=== PATIENT | male | born 1975 | race Caucasian/White ===

== ENCOUNTER 2019-05-30 00:58 | Emergency (ER) | payer MEDICAID, OTHER ==
[2019-05-30] MEDS: KETOROLAC 30 MG INJ IM (02:32)
[2019-05-30] MEDS: DIPHTH/TET/ACEL PERTUSS (ADULT) 0.5 ML VIAL IM* (02:32)
[2019-05-30] MEDS: LIDOCAINE 1% (MDV) 20 ML INJ SC (02:33)
[2019-05-30] MEDS: BACITRACIN 0.9 GM OINT TOP (02:33)
== END 2019-05-30 03:58 | disposition home or self-care (01) ==
LOC: FTE 03:58
DX: S61.012A Laceration without foreign body of left thumb without damage to nail, initial encounter (principal); W26.8XXA Contact with other sharp object(s), not elsewhere classified, initial encounter; Y92.9 Unspecified place or not applicable; Z23 Encounter for immunization
CPT/HCPCS: 12002; 90471; 90715; 96372; 99284-25

== ENCOUNTER 2019-06-09 14:37 | Emergency (ER) | payer MEDICAID | END 2019-06-09 15:20 | disposition home or self-care (01) | LOC: E/R 15:20 | DX: Z48.02 Encounter for removal of sutures (principal) | CPT/HCPCS: 99281; Z7502 ==